=== PATIENT | male | born 1945 | race Caucasian/White ===

== ENCOUNTER 2016-04-22 06:25 | Day surgery (SDC) | payer OTHER ==
[2016-04-22] MEDS ORDERED: diphenhydrAMINE 25 MG CAP PO ONE ×2 (06:32→06:47)
[2016-04-22] MEDS ORDERED: DIAZEPAM 5 MG TAB PO ONE (06:32)
[2016-04-22] MEDS ORDERED: ASPIRIN EC 325 MG TAB PO ONE (06:32)
[2016-04-22] MEDS ORDERED: FAMOTIDINE 20 MG TAB PO ONE (06:32)
[2016-04-22] MEDS ORDERED: NS 1,000 ML IV ONE (06:32)
--- NOTE | 2016-04-22 06:45 | CPEKG ---
Heart Rate: 50 RR Interval: 1200 P-R Interval: 192 QRSD Interval: 138 QT Interval: 488 QTC Interval: 445 P [place]: 45 QRS [place]: 38 T Wave [place]: 73 EKG Severity - ABNORMAL ECG - EKG Impression: SINUS RHYTHM EKG Impression: LEFT BUNDLE BRANCH BLOCK Electronically Signed By: Renan Navas 22-Apr-2016 07:43:15
[2016-04-22] MEDS ORDERED: FAMOTIDINE 20 MG TAB ONE (06:47)
[2016-04-22] MEDS ORDERED: DIAZEPAM 5 MG TAB ONE (06:48)
[2016-04-22 07:14] LABS: % IMMATURE GRANULYOCYTES 1.1 % (0.0-1.1); ABSOLUTE IMMATURE GRANULOCYTES 0.03 10^3/uL (0.00-0.10); ADD DIFF? NO; ADD MORPH? NO; ADD SCAN? NO; ATYPICAL LYMPHOCYTE FLAG 10 (0-99); FRAGMENT RBC FLAG 0 (0-99); HEMATOCRIT 37.9 % (40.0-51.0); HEMOGLOBIN 13.6 g/dL (13.7-17.5); LEFT SHIFT FLG 10 (0-99); LIPEMIA HEMOLYSIS FLAG 90 (0-99); MEAN CELL HEMOGLOBIN 33.9 pg (27.9-34.1); MEAN CELL HEMOGLOBIN CONCENTR. 35.9 g/dL (32.4-36.7); MEAN CELL VOLUME 94.5 fL (81.5-99.8); MEAN PLATELET VOLUME 9.4 fL (8.7-11.7); PLATELET CLUMPS FLAG 0 (0-99); PLATELET COUNT 245 10^3/uL (150-400); RED BLOOD CELL COUNT 4.01 10^6/uL (4.40-6.38); RED CELL DISTRIBUTION WIDTH 11.9 % (11.5-15.2)
[2016-04-22 07:18] LABS: INR 0.93 (0.83-1.16); PROTIME(PATIENT) 12.4 SEC (12.0-15.0)
[2016-04-22] MEDS ORDERED: fentaNYL 100 MCG/2 ML INJ ONE ×2 (07:21→08:10)
[2016-04-22] MEDS ORDERED: LIDOCAINE 1% 30 ML SDV ONE (07:21)
[2016-04-22] MEDS ORDERED: MIDAZOLAM 2 MG/2 ML VIAL ONE ×2 (07:22→08:10)
[2016-04-22] MEDS ORDERED: IOPAMIDOL (ISOVUE-370) 150 ML BTL IV ONE (07:22)
[2016-04-22] MEDS ORDERED: VERAPAMIL 5 MG/2 ML VIAL ONE (07:22)
[2016-04-22] MEDS ORDERED: HEPARIN 10,000 UNIT/10 ML MDV ONE (07:22)
[2016-04-22 07:24] LABS: ANION GAP 9 mEq/L (8-16); CALCIUM 9.1 mg/dL (8.5-10.4); CARBON DIOXIDE 23 mEq/l (22-31); CHLORIDE 105 mEq/L (97-110); CHOLESTEROL 199 mg/dL (140-220); CREATININE 0.6 mg/dL (0.7-1.3); GLOMERULAR FILTRATION RATE > 60; GLUCOSE 97 mg/dL (70-100); HIGH DENSITY LIPOPROTEIN 57 mg/dL (40-65); POTASSIUM 4.3 mEq/L (3.5-5.2); SODIUM 137 mEq/L (134-144); TRIGLYCERIDE 122 mg/dL (40-150); VERY LOW DENSITY LIPOPROTEINS 24 mg/dL (8-25)
[2016-04-22 07:25] LABS: CHOLESTEROL/HDL RATIO 3.49 RATIO (1.00-4.97); LDL/HDL RATIO 2.07 RATIO (1.00-3.64); LOW DENSITY LIPOPROTEIN 118 mg/dL (80-100); NON-HIGH DENSITY LIPOPROTEIN 142 mg/dL (90-129)
[2016-04-22] MEDS ORDERED: ATROPINE SULFATE 1 MG/10 ML SYR ONE (08:10)
--- NOTE | 2016-04-22 08:30 | SUROPNOTE ---
[facility] Operative Report - Surgery Date of Procedure: 04/22/16 Indication: This patient is a 70 year old man, with medical history significant for advanced prostate cancer s/p surgery, radiation, and androgen deprivation therapy, presenting with one year of progressively worsening exertional intolerance, dyspnea on exertion, and fatigue. The patient is a longtime endurance athlete, who now has profound difficulty exerting himself at his previous level. The patient is a new left bundle branch block of unknown duration. The patient had normal pulmonary function testing and CT pulmonary angiogram prior to being evaluated by our office. He has had overall normal cardiac workup, including lab work and exercise treadmill stress test, however stress echocardiogram was abnormal demonstrating mid anterior and mid apical septal wall dyskinesis. Right/left heart catheterization indicated in the setting of new LBBB, [place] cardiovascular class III anginal equivalent and dyspnea, and high-risk non-invasive testing. Procedures performed: 1. Right and Left heart catheterization with left ventricular and selective coronary angiography. Description of procedure: Description, risks, benefits and alternatives were discussed in detail. Informed consent was obtained. The patient was brought to the catheterization laboratory where a timeout was performed. The right arm was sterilely prepped and draped. 2% lidocaine utilized for local anesthetic. A 5-Finnish hemostatic sheath was placed in the right brachial vein utilizing the IV site already in place. A 5-Finnish PWP catheter was utilized for right heart catheterization. Following right heart catheterization, a 5/6-Finnish slender hemostatic sheath placed right radial artery utilizing micropuncture technique. Intraarterial verapamil and intravenous heparin was administered. Diagnostic coronary angiography performed with 6-Finnish, Brando left-3.5 and Brando right-4 catheter. All catheters were passed over a 0.035 guidewire. Pigtail catheter was then utilized for left heart catheterization and left ventricular angiography. Arterial sheath was removed and TR band was placed. Venous sheath was removed in the CVC. Findings: 1. Hemodynamics: Right atrial pressure mean of 5. Right ventricular pressure 31 /-1/8 end-diastolic. Pulmonary artery pressure 32/8, mean of 17. Pulmonary capillary wedge pressure mean of 7 with no significant V wave. Aortic pressure 102/56, mean of 75, left ventricular pressure 106/7/11 end-diastolic. There was no significant pull back gradient across the aortic valve. 2. Saturations: Superior vena cava 76.6%, main pulmonary artery 74.9%, Ao 92% . Assumed [place] cardiac output7.57 L/min with a cardiac index of 3.95 L/min/m2. 3. Left ventricle: The left ventricle appears normal in size. Left ventricle is normal shape. Segmental wall motion is normal with an ejection fraction of 50 %. There are no filling defects or significant mitral regurgitation. The aortic root and ascending aorta appears normal, there is no dissection or aneurysm formation. 4. Coronary angiography: Left main: The left main is a large bifurcating vessel , free of disease 5. Left anterior descending: This is a large vessel continuing to the apex. There is a large mid diagonal branch. The entire mid left anterior descending appears to be completely intra-myocardial with mild systolic compression, otherwise normal. 6. Circumflex: The circumflex is large and dominant vessel, which gives rise to a moderately large high-lateral branch, small first obtuse marginal branch, moderate second obtuse marginal branch, large posterolateral branch, and large posterior descending artery. Free of disease. 7. Right coronary: Large non-dominant vessel with multiple right ventricular branches. Free of disease. Overall Impression: 1. No coronary artery disease identified. 2. Normal resting right and left heart hemodynamics. 3. Normal left ventricular systolic function with low-normal ejection fraction of 50%. 4. Overall normal cardiac workup. Plan: 1. If symptoms continue, recommend full pulmonary workup at [facility] Portions of this report were documented by a medical information specialist. I have reviewed this report and agree with the documentation. Report scribed for Dr. Helio Bolanos. Report scribed by Shalonda Fam.
== END 2016-04-22 11:47 | disposition home or self-care (01) ==
LOC: FCATH 06:25
PROVIDERS: ATTEND Internal Medicine Interventional Cardiology
PROC: B2111ZZ Fluoroscopy of Multiple Coronary Arteries using Low Osmolar Contrast (ICD-10-PCS; principal; 2016-04-22)
PROC: B2151ZZ Fluoroscopy of Left Heart using Low Osmolar Contrast (ICD-10-PCS; principal; 2016-04-22)
PROC: 4A023N8 Measurement of Cardiac Sampling and Pressure, Bilateral, Percutaneous Approach (ICD-10-PCS; principal; 2016-04-22)
DX: R53.83 Other fatigue (principal); R68.89 Other general symptoms and signs; C61 Malignant neoplasm of prostate
CPT/HCPCS: J0461; J1644; J2250; J3010; Q9967